=== PATIENT | female | born 1945 | race Caucasian/White ===

== ENCOUNTER → 2016-12-24 | Outpatient (CLI) | payer MEDICARE ==
[~2016-12-24] MED LIST: KEFLEX 500MG.500 MG PO; LEVOTHYROXINE0.1 M1 PO; VICODIN 5/500 T1 TAB PO
[2016-12-24 11:41] LABS: BUN 14 mg/dL (7-18)
[2016-12-24 11:44] LABS: GFR (ESTIMATED) 82 ML/MIN (59-)
== END ==
LOC: LAB 08:23
PROVIDERS: Physician Assistant
DX: I25.10 Atherosclerotic heart disease of native coronary artery without angina pectoris (principal); E78.5 Hyperlipidemia, unspecified

== ENCOUNTER → 2017-01-09 | Outpatient (CLI) | payer MEDICARE | LOC: LAB 13:33 | DX: E03.9 Hypothyroidism, unspecified (principal); D49.7 Neoplasm of unspecified behavior of endocrine glands and other parts of nervous system ==